=== PATIENT | male | born 1980 | race Caucasian/White ===

== ENCOUNTER 2016-11-22 09:37 | Emergency (ER) | payer OTHER ==
[2016-11-22] MEDS ORDERED: IBUPROFEN 400 MG TABLET PO STA (11:12)
[2016-11-22] MEDS ORDERED: IBUPROFEN 400 MG TABLET PO ONE (11:15)
== END 2016-11-22 11:42 | disposition home or self-care (01) ==
DX: S83.411A Sprain of medial collateral ligament of right knee, initial encounter (principal); W11.XXXA Fall on and from ladder, initial encounter
CPT/HCPCS: 73564; 99282; 99283; A9270